=== PATIENT | male | born 1965 | race Caucasian/White ===

== ENCOUNTER → 2016-11-29 | Outpatient (CLI) | payer OTHER ==
[~2016-11-29] MED LIST: CEPH500C2 PO; CHOL1TAB42 PO; DIPH25CA37 PO; HYDR-5688 PO; MAGN400T6 PO
--- NOTE | 2016-11-29 11:21 | DIAGNOSTIC IMAGING REPORT ---
ABDOMEN FOR HERNIA CLINICAL HISTORY: INGUINAL PAIN pain. Nodule. TECHNIQUE: Ultrasonic evaluation pre and post Valsalva COMPARISON STUDY: None FINDINGS: Small fat-containing right inguinal hernia is seen only with the patient in Valsalva. This is reducible. This measures 1.3 cm in maximum dimension. There is no evidence of bowel containment. There are no abnormal left-sided findings. IMPRESSION: 1.3 cm fat-containing right inguinal hernia. This is reducible and is non bowel containing. The above report was generated using voice recognition software. It may contain grammatical, syntax or spelling errors. Electronically signed by: Placido Dowling M.D. 11/29/2016 11:19 AM Dictated Date/Time: 11/29/2016 11:18 AM
== END | disposition home or self-care (01) ==
LOC: C.ULTR 10:39
PROVIDERS: ATTEND Family Medicine
DX: R10.30 Lower abdominal pain, unspecified (principal)

== ENCOUNTER 2017-01-24 06:50 | Day surgery (SDC) | payer OTHER ==
[2017-01-18 10:13] LABS: BASO % 0.6 %; BASO ABS # 0.03 K/uL (0-0.2); COMPLETE YES; EOS % 1.9 %; HEMATOCRIT 40.1 % (42-52); IG% 0.2 %; LYMPH % 37.7 %; LYMPH ABS # 1.77 K/uL (1.2-3.4); MEAN CELL VOLUME 87.4 fL (80-100); MEAN CORPUSCULAR HEMOGLOBIN 30.3 pg (25-34); MEAN CORPUSCULAR HGB CONC 34.7 g/dl (32-36); NEUT % 49.6 %; PLATELET COUNT 237 K/uL (130-400); RED BLOOD COUNT 4.59 M/uL (4.7-6.1)
[2017-01-18 10:26] LABS: BLOOD UREA NITROGEN 16 mg/dl (7-18); BUN/CREATININE RATIO 14.9 (10-20); CALCIUM 9.1 mg/dl (8.5-10.1); CARBON DIOXIDE 30 mmol/L (21-32); CHLORIDE 102 mmol/L (98-107); GLUCOSE 102 mg/dl (70-99); POTASSIUM 3.9 mmol/L (3.5-5.1); SODIUM 137 mmol/L (136-145)
[2017-01-20 16:11] VITALS: BMI 27.0
[~2017-01-24] VITALS: Ht 170.2 cm; Wt 79.5 kg
[~2017-01-24 06:50] MED LIST changes: +CEFAZOLIN 2000 MG/60 ML D5W IV SCH; -CEPH500C2 PO; -HYDR-5688 PO; +LACTATED RINGER'S 1000ML 1,000 ML IV SCH; -MAGN400T6 PO
[2017-01-24] MEDS ORDERED: MAGN400T6 PO (07:04)
[2017-01-24 07:05] VITALS: BP 128/69; PULSE 59; TEMP 36.6; O2SAT 95; Ht 170.2 cm; Wt 79.5 kg
[2017-01-24] MEDS ORDERED: LIDOCAINE HCL 2% 2 ML VIAL (20MG/ML) ONE (07:54)
[2017-01-24] MEDS ORDERED: ONDANSETRON INJ 2 MG/ML 2 ML VIAL ONE (07:54)
[2017-01-24] MEDS ORDERED: DEXAMETHASONE SOD INJ 4 MG/ML VIAL ONE (07:54)
[2017-01-24] MEDS ORDERED: PHENYLEPHRINE HCL INJ 10 MG/ML VIAL ONE (07:54)
[2017-01-24] MEDS ORDERED: NEOSTIGMINE METHYLSULFATE 5 MG/5 ML SYR ONE (07:54)
[2017-01-24] MEDS ORDERED: EpHEDrine SULFATE INJ 50 MG/ML AMP ONE (07:54)
[2017-01-24] MEDS ORDERED: PROPOFOL IV EMULSION 10 MG/ML 20 ML VIAL IV ONE (07:54)
[2017-01-24] MEDS ORDERED: ROCURONIUM BROMIDE 10 MG/ML 5 ML VIAL IV ONE (07:54)
[2017-01-24] MEDS ORDERED: MIDAZOLAM HCL 1 MG/ML 2ML VIAL ONE (07:54)
[2017-01-24] MEDS ORDERED: SUCCINYLCHOLINE CHLORIDE 20 MG/ML 10 ML VIAL IV ONE (07:54)
[2017-01-24] MEDS ORDERED: GLYCOPYRROLATE INJ 0.2 MG/ML VIAL ONE (07:54)
[2017-01-24] MEDS ORDERED: FENTANYL CITRATE INJ 50 MCG/1 ML 2 ML VIAL ONE (07:54)
[2017-01-24] MEDS ORDERED: ONDANSETRON INJ 2 MG/ML 2 ML VIAL IV PRN ×2 (08:00→09:30)
[2017-01-24] MEDS ORDERED: ATROPINE SULFATE 0.1 MG/ML 5ML SYR IV PRN (08:00)
[2017-01-24] MEDS ORDERED: EpHEDrine SULFATE INJ 50 MG/ML AMP IV PRN (08:00)
[2017-01-24] MEDS ORDERED: FENTANYL CITRATE INJ 50 MCG/1 ML 2 ML VIAL IV PRN (08:00)
[2017-01-24] MEDS ORDERED: BUPIVACAINE 0.5 % 5 MG/1 ML MPF 30ML VIAL ONE (08:12)
--- NOTE | 2017-01-24 08:13 | History & Physical Bridge Note ---
H&P Re-Evaluation Bridge Note: I have examined the patient, reviewed the History & Physical and in the interval since the performance of the History & Physical I have noted the following changes of clinical significance: No changes noted
[2017-01-24] MEDS ORDERED: HYDR-5688 PO (08:20)
[2017-01-24] MEDS ORDERED: CEPH500C2 PO (08:20)
--- NOTE | 2017-01-24 08:23 | Discharge Instructions ---
Discharge Instructions Date of Service Jan 24, 2017. Visit Reason for Visit: Right Inguinal Hernia Discharge Discharge Diagnosis / Problem: Rt inguinal hernia Discharge Goals Goal(s): Decrease discomfort, Improve function, Improve disease control Activity Recommendations Activity Limitations: as noted below Lifting Limitations: until after follow-up appointment (lifting less than 20 lbs and no running for 4 weeks) Exercise/Sports Limitations: until after follow-up appointment May Resume Sexual Activity: when tolerated Shower/Bathe: tomorrow Driving or Machine Use: resume 3 days after discharge SPECIAL CARE INSTRUCTIONS: * Cover incisions and change daily for comfort/drainage. may leave uncovered with dermabond * Avoid constipation- may use Senokot S and Milk of magnesia twice daily as directed on the package * May use ibuprofen for pain as tolerated. * Expect some swelling and bruising. Call your doctor if: * Temperature above 101 degrees * Pain not relieved by pain medicine ordered * There is increased drainage or redness from any incision * You have any unanswered questions or concerns [phone]. FOLLOW UP VISIT: If not already scheduled, please call the office for a follow-up visit. for 1-2 weeks- checkup- no sutures to remove OFFICE PHONE NUMBER: Dr. Romero Office Anesthesia . Post Anesthesia Instructions: If you have had General Anesthesia or IV Sedation: * Do not drive today. * Resume driving when surgeon permits. * Do not make important decisions or sign legal documents today. * Call surgeon for: 1. Temperature elevations greater than 101 degrees F. 2. Uncontrollable pain. 3. Excessive bleeding. 4. Persistent nausea and vomiting. 5. Medication intolerance (nausea, vomiting or rash). * For nausea and vomiting use only clear liquids such as: tea, soda, bouillon until nausea subsides, then gradually increase diet as tolerated. * If you have any concerns or questions, call your surgeon's office. If physician is unavailable and it is an emergency, call 911 or go to the nearest emergency room. . Diet Recommendations Recommended Home Diet: resume previous diet Pending Studies Studies pending at discharge: no Medical Emergencies . Who to Call and When: Medical Emergencies: If at any time you feel your situation is an emergency, please call 911 immediately. . Non-Emergent Contact Non-Emergency issues call your: Primary Care Provider, Surgeon . . "Provider Documentation" section prepared by Alpesh Romero. .
[2017-01-24] MEDS: CEFAZOLIN SOD 1 GM VIAL ONE ×2 (08:55→09:07)
--- NOTE | 2017-01-24 09:19 | [facility] Operative Report ---
Operative Report Operative Date Jan 24, 2017. Pre-Operative Diagnosis Inguinal Hernia, Right Post-Operative Diagnosis Inguinal Hernia, Right Procedure(s) Performed Right Laparoscopic Inguinal Hernia Repair Surgeon Correspondence Review Clerk Surgeon(s) Ashwini Reddy PA-C Estimated Blood Loss 5ML Findings indirect defect with small lipoma Specimens None per surgeon Anesthesia gen Complication(s) None Disposition Recovery Room / PACU I attest to the content of the Intraoperative Record and any orders documented therein. Any exceptions are noted below.
[2017-01-24] MEDS ORDERED: HYDROCODONE/ACETAMOPHEN 5/325MG TAB PO PRN ×2 (09:30)
--- NOTE | 2017-01-24 10:05 | Anesthesiology Progress Note ---
Anesthesia Post Op Note Date & Time Jan 24, 2017 at 10:04 Vital Signs Pain Intensity: 0 Vital Signs Past 12 Hours Date Time Temp Pulse Resp B/P (MAP) Pulse Ox O2 Delivery O2 Flow Rate FiO2 01/24/17 09:58 48 15 94 01/24/17 09:58 48 15 01/24/17 09:56 115/69 01/24/17 09:53 51 12 95 01/24/17 09:53 50 12 01/24/17 09:52 50 14 96 01/24/17 09:52 50 14 01/24/17 09:51 116/76 01/24/17 09:47 56 17 97 01/24/17 09:47 55 17 01/24/17 09:46 119/79 01/24/17 09:42 61 16 01/24/17 09:42 61 16 99 01/24/17 09:41 124/83 01/24/17 09:37 66 13 01/24/17 09:37 66 13 100 01/24/17 09:36 133/85 01/24/17 09:33 140/94 01/24/17 09:32 81 16 100 01/24/17 09:32 80 16 01/24/17 09:32 36.7 79 16 140/94 100 Mask 10 01/24/17 07:05 36.6 59 16 128/69 (88) 95 Room Air Notes Mental Status: alert / awake / arousable, participated in evaluation Pt Amnestic to Procedure: Yes Nausea / Vomiting: adequately controlled Pain: adequately controlled Airway Patency, RR, SpO2: stable & adequate BP & HR: stable & adequate Hydration State: stable & adequate Anesthetic Complications: no major complications apparent
--- NOTE | 2017-01-24 10:12 | OPERATIVE REPORT ---
DATE OF OPERATION: 01/24/2017 NAME OF OPERATION: Laparoscopic right inguinal hernia repair. PREOPERATIVE DIAGNOSIS: Right inguinal hernia. POSTOPERATIVE DIAGNOSIS: Same with indirect defect and small lipoma of the cord. STAFF SURGEON: Dr. Alpesh Romero. WATER PROOFER: Ashwini Reddy PA-C ANESTHESIA: General. DESCRIPTION OF PROCEDURE: The patient was brought into the operating room and placed on the operating table in the supine position. Pneumatic stockings and orogastric tube were placed. Smith catheter was placed. Using 0.5% plain Marcaine, all incisions were anesthetized. Incision was made above the umbilicus, carrying dissection down to the fascia, placing a Veress needle, producing pneumoperitoneum, placing 11-mm port at this level and then passing the camera. Under visualization, two 5-mm ports were placed, 1 right and left lateral and then inspection of the lower abdomen showed a small right inguinal hernia with what appeared to be a lipoma. At this point, the peritoneum was taken down superior to this area and medial, from medial to lateral, identifying the lipoma and dissecting out surrounding cord structures and then the sac was identified and also dissected away from the cord structures. A medium piece of 3D max mesh was obtained and placed into the abdomen. It was placed into the right lower quadrant, covering the defect very well. It was secured superiorly using absorbable tacks, being careful not to go below the inguinal ligament. The peritoneum was then brought up over the mesh, securing it using absorbable tacks. There was a small opening in the peritoneum, which was closed using 5-mm clips. At this point, the pneumoperitoneum was slowly decreased with good coverage. All ports were removed. The fascia at the umbilicus closed using interrupted 0 Vicryl suture. Skin reapproximated using subcuticular 5-0 Monocryl with Dermabond. The patient was transferred to recovery room in stable condition. I attest to the content of the Intraoperative Record and any orders documented therein. Any exception s are noted below.
[2017-01-24 10:15] VITALS: BP 106/68; PULSE 46; TEMP 36.5; O2SAT 97
[2017-01-24 10:45] VITALS: BP 116/74; PULSE 47; O2SAT 100
[2017-01-24 11:15] VITALS: BP 123/83; PULSE 51; TEMP 36.6; O2SAT 100
== END 2017-01-24 11:47 | disposition home or self-care (01) ==
LOC: C.ACU 06:50
PROVIDERS: ATTEND Surgery
DX: K40.90 Unilateral inguinal hernia, without obstruction or gangrene, not specified as recurrent (principal); D17.6 Benign lipomatous neoplasm of spermatic cord